=== PATIENT | male | born 1965 | race Caucasian/White ===

== ENCOUNTER 2017-04-03 17:46 | Emergency (ER) | payer OTHER ==
[~2017-04-03] VITALS: Ht 175.3 cm; Wt 90.9 kg
[2017-04-03] MEDS ORDERED: BENTYL10 M1 PO (19:47)
[2017-04-03] MEDS ORDERED: MIRALAX17 GM PO (19:47)
[2017-04-03 19:53] VITALS: BP 140/90
== END 2017-04-03 19:53 | disposition home or self-care (01) ==
LOC: ED 17:46 → EDBD 18:57 → ED 18:57
DX: K59.00 Constipation, unspecified (principal); R10.13 Epigastric pain
CPT/HCPCS: J1885